=== PATIENT | male | born 1980 | race Caucasian/White ===

== ENCOUNTER 2022-05-24 09:22 | Day surgery (SDC) | payer SELFPAY, OTHER ==
[2022-05-24 09:56] VITALS: BP 118/72; PULSE 60; RESP 16; TEMP 36.6; O2SAT 96; BMI 23.6
[2022-05-24] MEDS: Lactated Ringers 1,000 ML 15 ML IV (10:07)
--- NOTE | 2022-05-24 12:08 | RAD_ITS ---
STUDY: X-RAY - LEFT WRIST REASON FOR EXAM: Male, 41 years old. ORIF, DISTAL RADIUS TECHNIQUE: 2 view(s) of the wrist were obtained. COMPARISON: None. FINDINGS: Intraoperative imaging provided for ORIF of the distal radial metaphyseal fracture. RAD/Wrist 2 Views IMPRESSION: Intraoperative imaging provided for ORIF of the distal radial metaphyseal fracture. Electronically Signed: Wilmar Powers MD at 15:39 EDT ,
[2022-05-24] MEDS: Cefazolin 2 GM in 0.9% Normal Saline 100 ML IV (12:26)
--- NOTE | 2022-05-24 13:44 | DCINST_ITS ---
Discharge Instructions Follow Up Care Test Results: Test results from this visit will be discussed in further detail at your follow- up appointment, if applicable. Discharge Plan Admission Attending Provider: Jac Gould Primary Care Provider: Aditya Caraballo Instructions Additional Instructions / Restrictions: follow preprinted instructions from your surgeons office Discharge Orders/Prescriptions Prescriptions: New oxycodone 5 mg tablet 5 mg PO Q6H PRN (Reason: pain) 5 Days Qty: 20 0RF Referrals / Follow Up: Jac Gould DO [STAFF PHYSICIAN] - Within 2 Weeks Aditya Caraballo MD [Primary Care Provider] - Disposition Disposition (needs filled in before D/C Order can be placed): Home, Self Care
--- NOTE | 2022-05-24 13:54 | PCM.OPRPT ---
Report of Operation Date of Procedure: 05/24/22 Description of Surgical Findings:: Preoperative diagnosis: Left comminuted intra-articular displaced distal radius fracture Postoperative diagnosis: Left comminuted intra-articular displaced distal radius fracture Procedure: Left distal radius open reduction internal fixation, greater than 3 parts Surgeon: Jac Gould DO Plastic Boat Patcher: Rosa Salinas PA-C Anesthesia: General LMA with axillary block Anesthesiologist: Dr. Cain Complications: None apparent Drains: None Estimated blood loss: 20 cc Urinary output: None recorded IV fluids: 1100 cc crystalloid Specimens: None Surgical implants: [employer] standard width 3-hole left-sided volar locking distal radius plate and screws Surgical indications: This is a otherwise healthy 41-year-old male who sustained a fall on outstretched left hand after he was bucked from a horse on 05/17/2022. He was seen at [facility] emergency department. Closed reduction and splinting was performed to the left upper extremity. I saw the patient the following day on 05/18/2022. He was neurovascular intact at time of my examination. Fracture continued with significant dorsal displacement and angulation. Given his age and functional status, I recommended open reduction internal fixation of the left distal radius. The risks, benefits, terms the procedure reviewed with patient at length and he agreed to proceed with surgery. Risks included but were not limited to bleeding, flexion, loss of life or limb, need for additional surgery, persistent pain, nonhealing wounds or bone, neurovascular injury, stiffness, risk of anesthesia. Patient expressed understanding his risk wish to proceed with surgery. Description of procedure: Patient was seen in preoperative holding area. He was identified by name, medical record number, date of . The operative extremity was marked with a surgical marker. We confirmed informed consent with the patient and all questions were answered to his satisfaction. Prior to his procedure, an axillary block was administered by the anesthesia staff for intraoperative and postoperative analgesia. Patient was neurovascularly intact prior to the block. At time of his procedure, patient was brought to the operative suite and positioned supine on a standard operating table. All bony prominences were well-padded. General anesthesia was administered. After adequate anesthesia and securing the LMA, a well-padded pneumatic tourniquet was applied to the upper arm of the operative extremity. We then spun the bed 90 degrees. We prepped and draped the operative extremity in a normal, sterile orthopedic fashion. We then performed a timeout with all parties in attendance in agreement the side, site, and operation be performed. No concerns were voiced and we elected to proceed. 2 g Ancef was administered for antibiotic prophylaxis prior to the incision by anesthesia staff. I first exsanguinated the operative extremity with an Esmarch bandage. Tourniquet was inflated to 250 mmHg were made up for 41 minutes. Esmarch was removed. I planned a standard FCR approach over the flexor carpi radialis tendon along the volar wrist. Skin was sharply incised with a 15 blade scalpel down to the level of the tendon sheath. The FCR tendon sheath was identified and split longitudinally in line with the incision. I then retracted the FCR tendon ulnarly, split the floor of the tendon sheath in line with the incision. The flexor pollicis longus muscle belly was then encountered and retracted ulnarly. The pronator quadratus was then encountered. A self-retaining retractor was placed deep. Performed an L-shaped tenotomy of the pronator quadratus and subperiosteally elevated it ulnarly. A significant portion of the pronator quadratus was torn prior to the tenotomy secondary to the fracture. This exposed the fracture site. The articular segment was displaced dorsally and angulated dorsally. There was comminution noted at the base of the radial styloid. Hematoma was debrided. I then reduced the fracture by levering with a freer elevator and applying a volar translation force on the carpus. The volar cortex keyed in nicely. This was held in place with a K wire through the radial styloid placed percutaneously. Acceptable reduction was confirmed on orthogonal fluoroscopy. I then selected a standard with volar locking 3-hole plate from [employer]. This was placed provisionally and held in place with K wires. Plate position was confirmed to be appropriate on orthogonal fluoroscopy. I then drilled for a bicortical cortex screw in the oblong hole of the shaft of the plate. This compressed the plate to the bone nicely. I then drilled unit cortically and one of the distal holes into the distal segment and compress the plate down to bone with a unicortical compression locking screw. I then placed locking screws through the distal row of the plate sequentially, all unicortically. I then, under fluoroscopic guidance, drilled unicortical styloid screws utilizing the variable angle guide. These were placed appropriately towards the tip of the radial styloid. I then placed additional bicortical screws in the shaft of the plate for additional fixation. Final fluoroscopic images were obtained. Hardware appeared to be appropriate position and extra-articular. Fracture was stable. Tourniquet was deflated. Hemostasis was excellent. I then thoroughly irrigated the wound with normal saline solution. We closed the dermis in buried fashion with interrupted 3-0 Vicryl suture. Skin was then finally reapproximated with buried 4-0 Monocryl suture and skin glue. Patient tolerated procedure well without apparent complications. He was safely extubated in the operative suite and transferred to PACU in stable condition after being transferred to his gurney. Need for skilled behavioral modification assistant: Rosa Salinas PA-C was critical to the outcome of the case. During the course of the procedure the physician behavioral modification assistant played a vital role. Her intimate knowledge of my steps in the procedure aided in safe and expedient completion of the procedure. The PA played a vital role in positioning particularly in obtaining the appropriate positioning. The PA was also vital in the retraction of soft tissues during the exposure and protecting vital structures. The PA was also vital and protecting soft tissues during times of fracture reduction and hardware placement. She also played a vital role in wound closure and splint application with my direct supervision. Post Operative Plan: Weightbearing: Nonweightbearing operative extremity Antibiotics: 2 g Ancef x 1 dose preoperatively DVT Prophylaxis: None indicated Prince: None Dressing: Maintain splint, keep it clean dry and intact until follow-up X-Rays: 2 weeks postop in the office Pain Medication: Oxycodone prescription provided Follow-up: 2 weeks post-operatively with me in the office
[2022-05-24 14:23] VITALS: BP 118/72; BP 119/67; PULSE 78; RESP 18; TEMP 36.2; O2SAT 98
[2022-05-24 14:30] VITALS: BP 118/72; BP 119/83; PULSE 75; RESP 18; O2SAT 96
[2022-05-24 14:44] VITALS: BP 117/85; BP 118/72; PULSE 74; RESP 18; TEMP 36.6; O2SAT 97
[2022-05-24 15:35] VITALS: BP 118/72; BP 122/75; PULSE 67; RESP 16; TEMP 36.9; O2SAT 100
== END 2022-05-24 16:00 | disposition home or self-care (01) ==
LOC: SDC 09:25 → AC 09:26
PROVIDERS: PCP Family Medicine; Referring Provider Family Medicine; Visit Provider Student in an Organized Health Care Education/Training Program
PROC: (CPT 25609; principal; 2022-05-24 10:55)
DX: S52.572A Other intraarticular fracture of lower end of left radius, initial encounter for closed fracture (principal); R03.0 Elevated blood-pressure reading, without diagnosis of hypertension; V80.010A Animal-rider injured by fall from or being thrown from horse in noncollision accident, initial encounter; Y93.52 Activity, horseback riding
CPT/HCPCS: 25609; 64417; 01830; 73100; 76000; C1713; J7120; J2405; J3490